=== PATIENT | male | born 1945 | race Caucasian/White ===

== ENCOUNTER 2016-09-09 00:55 | Emergency (ER) | payer OTHER, MEDICARE ==
[~2016-09-09] VITALS: Ht 180.3 cm; Wt 77.1 kg
--- NOTE | 2016-09-09 01:51 | ED INFLUENZA/URI COMPLAINT ---
History of Present Illness General Chief Complaint: Upper Respiratory Sx/Fever Stated Complaint: "COUGHING UP MOUTHFUL OF PHLEM ? PNEUMONIA" Source: patient, old records Exam Limitations: no limitations Vital Signs & Intake/Output Vital Signs & Intake/Output Vital Signs Date Time Temp Pulse Resp B/P Pulse O2 O2 Flow FiO2 Ox Delivery Rate 09/09 0127 Room Air 09/09 0113 97.2 87 18 135/76 97 Room Air Allergies Coded Allergies: NO KNOWN ALLERGIES (09/25/11) Triage Note: PT TO TRIAGE C/O PRODUCTIVE COUGH X2 DAYS. STATES HE IS COUGHING UP GREEN/YELLOW PHLEGM. PT STATES HE CANT STOP COUGHING WHEN LAYING DOWN. PT DENIES FEVER, BUT STATES HE FEELS TIRED. PT C/O OF CHEST AND STOMACH "SORENESS". PT HAD CAT SCAN OF LUNGS 3 WEEKS AGO BY . Triage Nurses Notes Reviewed? yes Onset: 2 days Duration: day(s):, constant, continues in ED, getting worse Timing: recent history Severity: moderate Prior Episodes/Possible Cause: illness exposure No Modifying Factors: none Associated Symptoms: cough, muscle aches, nasal congestion, nasal drainage, sinus infection, wheezing HPI: Several days prior to admission patient was exposed to viral illness. 2 days prior to admission he developed productive cough and nasal discharge of thick yellow phlegm and mucus with wheezing. He denies fever chills chest pain shortness breath headache dysuria rash bleeding. Past History Travel History Traveled to [place] past 21 day No Medical History Any Pertinent Medical History? see below for history Cardiovascular: myocardial infarction Respiratory: COPD, DECREASED LUNG FUNCTION ?ASTHMA ?COPD Endocrine: hypothyroidism, NO TETOSTERONE Surgical History Surgical History: cardiac stent Psychosocial History Who do you live with Spouse What is your primary language Malay Tobacco Use: Never used Family History Hx Contributory? No Review of Systems Review of Systems Constitutional: Reports: see HPI, malaise. EENTM: Reports: see HPI, nasal congestion. Respiratory: Reports: see HPI, cough, sputum production, wheezing. Cardiovascular: Reports: no symptoms. GI: Reports: no symptoms. Genitourinary: Reports: no symptoms. Musculoskeletal: Reports: no symptoms. Skin: Reports: no symptoms. Neurological/Psychological: Reports: no symptoms. Hematologic/Endocrine: Reports: no symptoms. Immunologic/Allergic: Reports: no symptoms. All Other Systems: Reviewed and Negative Physical Exam Physical Exam General Appearance: well developed/nourished, alert, awake, anxious, mild distress Head: atraumatic, normal appearance, tenderness (frontal sinus) Eyes: Bilateral: normal appearance, PERRL, EOMI. Ears, Nose, Throat: moist mucous membrane, nasal congestion, pharyngeal erythema Neck: normal inspection, supple, full range of motion, trachea midline, lymphadenopathy (R), lymphadenopathy (L) Respiratory: chest non-tender, no respiratory distress, quiet respiration, decreased breath sounds, wheezing Cardiovascular: regular rate/rhythm, normal peripheral pulses, norml femoral pulses equa Peripheral Pulses: 4+ carotid (R), 4+ carotid (L) Gastrointestinal: normal bowel sounds, soft, non-tender, no organomegaly Back: normal inspection, normal range of motion Extremities: normal inspection, normal capillary refill, normal range of motion, no edema Neurologic/Psych: no motor/sensory deficits, awake, alert, oriented x 3, normal gait, normal mood/affect, 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 Skin: intact, normal color, warm/dry Lymphatic: adenopathy Core Measures Severe Sepsis Present: No Septic Shock Present: No Progress Differential Diagnosis: influenza, otitis, pneumonia, pharyngitis, sinusitis Plan of Care: Orders Procedure Date/time Status XRY-CHEST XRAY, PA AND LATERAL 09/09 0130 Active Diagnostic Imaging: Viewed by Me: Radiology Read. Discussed w/RAD: Radiology Read. CXR Impression: no acute abnormality, no infiltrates Initial ED EKG: none Departure Departure Time of Disposition: 232 Disposition: HOME OR SELF CARE Condition: Stable Clinical Impression Primary Impression: Sinusitis, acute Qualifiers: Sinusitis location: unspecified location Recurrence: not specified as recurrent Qualified Code: J01.90 - Acute sinusitis, unspecified Secondary Impressions: Bronchitis, acute, with bronchospasm Referrals: DANIEL ELIZONDO,ELLEN (PCP/Family) Departure Forms: Customer Survey General Discharge Information Prescriptions: Current Visit Scripts Prednisone 1 TAB PO BID #10 TAB Amoxicillin 1 TAB PO BID #20 TAB Benzonatate (Tessalon Perle) 1 CAP PO TID #21 CAP
--- NOTE | 2016-09-09 02:28 | RADIOLOGY REPORT ---
EXAMINATION: CHEST 2 VIEWS CLINICAL INFORMATION: Cough, wheezing. COMPARISON: 05/04/2015. August 16, 2016. TECHNIQUE: PA and lateral views of the chest were obtained. FINDINGS: The cardiac silhouette is not enlarged. The mediastinal and hilar contours are unremarkable. There are neither pleural effusions nor pneumothoraces. There are no consolidations. The osseous structures are unremarkable. IMPRESSION: No evidence for acute disease.
[2016-09-09] MEDS ORDERED: AMOXICILLIN875 M1 PO (02:34)
[2016-09-09] MEDS ORDERED: PREDNISONE20 M1 PO (02:34)
[2016-09-09] MEDS ORDERED: TESSALON PERLE100 M1 PO (02:34)
[2016-09-09 02:43] VITALS: BP 127/73
== END 2016-09-09 02:44 ==
LOC: ERH 00:55
DX: J01.90 Acute sinusitis, unspecified (principal)
CPT/HCPCS: 1263